=== PATIENT | female | born 1955 | race Caucasian/White ===

== ENCOUNTER → 2017-01-30 | Outpatient (CLI) | payer OTHER ==
[~2017-01-30] MED LIST: PANT40TA PO; VENL75CA PO; [UNRECOGNIZED DRUG - OTHER] PO
--- NOTE | 2017-01-30 15:37 | DIAGNOSTIC IMAGING REPORT ---
KUB CLINICAL HISTORY: Nephrolithiasis. FINDINGS: 2 AP supine abdominal radiographs are compared to study dated 02/13/2016 and correlated with abdominal CT dated 02/07/2016. There is a nonobstructed abdominal bowel gas pattern. Cholecystectomy clips are identified in the right upper quadrant. There is no radiographic evidence of nephrolithiasis. No calcifications project along the course of the ureters. Calcified phleboliths in the left pelvis are unchanged. The skeletal structures are osteopenic. There is moderate lumbosacral spondylosis. IMPRESSION: 1. There is no radiographic evidence of nephrolithiasis on today's examination. 2. Nonobstructed abdominal bowel gas pattern. Electronically signed by: Graeme Montiel M.D. 01/30/2017 3:36 PM Dictated Date/Time: 01/30/2017 3:35 PM
[2017-01-30 16:28] LABS: BLOOD UREA NITROGEN 17 mg/dl (7-18)
== END | disposition home or self-care (01) ==
LOC: C.RAD 14:51
PROVIDERS: ATTEND Urology
DX: N20.1 Calculus of ureter (principal)

== ENCOUNTER → 2017-02-15 | Outpatient (CLI) | payer OTHER ==
[~2017-02-15] MED LIST changes: +GADAVIST IV PRN
--- NOTE | 2017-02-15 11:12 | DIAGNOSTIC IMAGING REPORT ---
ABDOMINAL MRI WITH AND WITHOUT INTRAVENOUS CONTRAST HISTORY: Follow-up right renal lesion. TECHNIQUE: Multiplanar multisequence MRI of the abdomen was performed both before and after the intravenous administration of contrast. COMPARISON STUDY: Abdomen and pelvis CT 04/29/2015 and 02/17/2016. FINDINGS: There is again noted an exophytic 12 mm lesion within the interpolar region of the right kidney. This contains a few calcifications on the prior CT examination. This is heterogeneously T2 hyperintense, T1 hypointense. This demonstrates a thickened and nodular enhancement within the wall. Therefore, by definition this is consistent with a Bosniak category 3 lesion no additional enhancing lesions identified within the kidneys. There are few scattered bilateral T2 hyperintense nonenhancing lesions consistent with cysts. The dominant cyst is seen within the left kidney and measures 11 mm. Cholecystectomy. The liver, pancreas, and adrenal glands are unremarkable. The spleen is top normal in size. No retroperitoneal lymphadenopathy. IMPRESSION: 1. A 12 mm exophytic lesion within the right kidney which has not significantly changed in size compared to the 2015 examination. However, this is still considered a Bosniak category 3 lesion by criteria. Therefore, a renal neoplasm remains the diagnosis of exclusion. 2. Small bilateral renal cysts are again noted. 3. Cholecystectomy. Electronically signed by: Micky Rubio M.D. 02/15/2017 11:11 AM Dictated Date/Time: 02/15/2017 10:58 AM
== END | disposition home or self-care (01) ==
LOC: C.MRI 09:27
PROVIDERS: ATTEND Urology
DX: N28.89 Other specified disorders of kidney and ureter (principal); N28.1 Cyst of kidney, acquired; Z90.49 Acquired absence of other specified parts of digestive tract

== ENCOUNTER → 2017-12-27 | Outpatient (CLI) | payer OTHER ==
[~2017-12-27] MED LIST changes: -GADAVIST IV PRN; -VENL75CA PO; +VENL75CA88 PO
== END | disposition home or self-care (01) ==
LOC: C.LAB 11:32
PROVIDERS: ATTEND Family Medicine
DX: R07.89 Other chest pain (principal)

== ENCOUNTER → 2018-02-03 | Outpatient (CLI) | payer OTHER ==
--- NOTE | 2018-02-04 21:42 | ECHOCARDIOGRAM REPORT ---
*NOTICE TO RECEIVING DEMOCRAT AGENCY This information is strictly Confidential and protected under [place] law. [place] law prohibits you from making any further disclosure of this information unless further disclosure is expressly permitted by the written consent of the person to whom it pertains or is authorized by law. A general authorization for the release of medical or other information is not sufficient for this purpose. Hospital accepts no responsibility if the information is made available to any other person, INCLUDING THE PATIENT. Interpretation Summary * Name: JUN DOWLING Study Date: 02/03/2018 12:52 PM BP: 154/90 mmHg * Patient Location: [facility] HR: 72 * : 1955 (M/d/yyyy) Gender: Female Height: 67 in * Age: 62 yrs Ethnicity: [place] Weight: 265 lb * Ordering Physician: Emelia Mcintosh * Referring Physician: Emelia Mcintosh * Performed By: Mora Bonds RDCS * * Reason For Study: CHEST PAIN * BSA: 2.3 m2 * -- Conclusions -- * 1. Normal left ventricular size and systolic function. EF 65-70%. No regional wall motion abnormalities. Mild left ventricular hypertrophy. Type 1 diastolic dysfunction. * 2. No significant valvular abnormalities visualized. * 3. No prior study available for comparison. Procedure Details * A complete two-dimensional transthoracic echocardiogram was performed (2D, M-mode, Doppler and color flow Doppler). Left Ventricle * Normal left ventricular size and systolic function. EF 65-70%. No regional wall motion abnormalities. Mild left ventricular hypertrophy. Type 1 diastolic dysfunction. Right Ventricle * The right ventricle is grossly normal size. * The right ventricular systolic function is normal as assessed by tricuspid annular plane systolic excursion (TAPSE) (normal >1.5 cm). Atria * The left atrial size is normal. * Right atrial size is normal. * There is no evidence of atrial septal defect, but resolution does not allow assessment for a patent foramen ovale. Mitral Valve * The mitral valve is grossly normal. * There is no mitral valve stenosis. * Significant mitral regurgitation is absent. Tricuspid Valve * The tricuspid valve is not well visualized, but is grossly normal. * There is no tricuspid stenosis. * There is trace tricuspid regurgitation. Aortic Valve * The aortic valve is trileaflet. * No hemodynamically significant valvular aortic stenosis. * There is no significant aortic regurgitation. Pulmonic Valve * The pulmonic valve is not well seen, but is grossly normal. * There is no pulmonic valvular stenosis. * Trace pulmonic valvular regurgitation. Great Vessels * The aortic root is normal size. * Ascending aorta of normal dimension Pericardium/Pleural * There is no pericardial effusion. Great Vessels * Normal inferior vena cava size and collapsability with sniff indicates a normal right atrial pressure of 3 mmHg MMode 2D Measurements and Calculations IVSd 1.3 cm IVSs 2.3 cm LVIDd 5.2 cm LVIDs 3.1 cm LVPWd 0.89 cm LVPWs 1.6 cm IVS/LVPW 1.5 FS 40.5 % EDV(Teich) 127.6 ml ESV(Teich) 37.1 ml EF(Teich) 70.9 % EDV(cubed) 137.9 ml ESV(cubed) 29.0 ml EF(cubed) 79.0 % % IVS thick 75.7 % % LVPW thick 83.0 % LV mass(C)d 221.6 grams LV mass(C)dI 97.3 grams/m\S\2 LV mass(C)s 267.3 grams LV mass(C)sI 117.3 grams/m\S\2 SV(Teich) 90.5 ml SI(Teich) 39.7 ml/m\S\2 SV(cubed) 108.9 ml SI(cubed) 47.8 ml/m\S\2 Ao root diam 3.5 cm Ao root area 9.5 cm\S\2 ACS 1.7 cm LA dimension 4.4 cm asc Aorta Diam 3.4 cm LA/Ao 1.3 LVOT diam 2.2 cm LVOT area 3.8 cm\S\2 LVAd ap4 29.2 cm\S\2 LVLd ap4 9.0 cm EDV(MOD-sp4) 83.3 ml EDV(sp4-el) 80.8 ml LVAs ap4 15.6 cm\S\2 LVLs ap4 7.3 cm ESV(MOD-sp4) 31.6 ml ESV(sp4-el) 28.4 ml EF(MOD-sp4) 62.1 % EF(sp4-el) 64.9 % LVAd ap2 31.6 cm\S\2 LVLd ap2 8.6 cm EDV(MOD-sp2) 99.8 ml EDV(sp2-el) 98.7 ml LVAs ap2 14.0 cm\S\2 LVLs ap2 6.8 cm ESV(MOD-sp2) 26.7 ml ESV(sp2-el) 24.6 ml EF(MOD-sp2) 73.3 % EF(sp2-el) 75.0 % LVLd %diff -4.58 % EDV(MOD-bp) 90.1 ml LVLs %diff -5.22 % ESV(MOD-bp) 26.2 ml EF(MOD-bp) 70.9 % SV(MOD-sp4) 51.7 ml SI(MOD-sp4) 22.7 ml/m\S\2 SV(MOD-sp2) 73.1 ml SI(MOD-sp2) 32.1 ml/m\S\2 SV(MOD-bp) 63.9 ml SI(MOD-bp) 28.0 ml/m\S\2 SV(sp4-el) 52.5 ml SI(sp4-el) 23.0 ml/m\S\2 SV(sp2-el) 74.1 ml SI(sp2-el) 32.5 ml/m\S\2 Doppler Measurements and Calculations MV E max annia 66.9 cm/sec MV A max annia 71.2 cm/sec MV E/A 0.94 MV dec time 0.20 sec Ao V2 max 145.8 cm/sec Ao max PG 8.5 mmHg Ao max PG (full) 5.9 mmHg JOSE(V,A) 2.1 cm\S\2 JOSE(V,D) 2.1 cm\S\2 LV V1 max PG 2.6 mmHg LV V1 max 80.2 cm/sec PA V2 max 60.9 cm/sec PA max PG 1.5 mmHg
== END | disposition home or self-care (01) ==
LOC: C.CPL 12:42
PROVIDERS: ATTEND Family Medicine
DX: R07.89 Other chest pain (principal)

== ENCOUNTER → 2018-02-10 | Outpatient (CLI) | payer OTHER ==
--- NOTE | 2018-02-10 10:41 | DIAGNOSTIC IMAGING REPORT ---
ABD/PELVIS COMBO CT DOSE: 3006.82 mGycm HISTORY: Nephrocalcinosis N20.0 [id number] TECHNIQUE: Multiaxial CT images of the abdomen and pelvis were performed pre and post intravenous contrast enhancement. A dose lowering technique was utilized adhering to the principles of ALARA. COMPARISON STUDY: 09/17/2015 FINDINGS: Chronic basilar or reactive change and interstitial parenchymal fibrosis. The liver spleen and pancreas appear unremarkable. Bilateral nephrocalcinosis considered unchanged from the prior study. Small cysts and are slightly hyperdense cysts unchanged. There are no new or interval findings. Postcontrast images show uniform enhancement characteristics of the kidneys. The adrenal glands are normal. Bowel pattern within the abdomen and pelvis is nonobstructive. Bladder opacifies well. The appendix is normal. IMPRESSION: 1. Bilateral nonobstructing nephrocalcinosis. 2. Several renal cysts and or complex cysts unchanged from the prior exam. 3. No abnormal postcontrast enhancement characteristics. 4. Remainder of the study is unremarkable. The above report was generated using voice recognition software. It may contain grammatical, syntax or spelling errors. Electronically signed by: Magno Cruz M.D. 02/10/2018 10:40 AM Dictated Date/Time: 02/10/2018 10:35 AM
== END | disposition home or self-care (01) ==
LOC: C.CTS 09:50
PROVIDERS: ATTEND Urology
DX: N20.0 Calculus of kidney (principal); N28.1 Cyst of kidney, acquired

== ENCOUNTER → 2018-02-14 | Outpatient (CLI) | payer OTHER ==
[2018-02-14 16:00] LABS: BLOOD UREA NITROGEN 27 mg/dl (7-18); CREATININE 1.33 mg/dl (0.60-1.20)
== END | disposition home or self-care (01) ==
LOC: C.LAB 13:51
PROVIDERS: ATTEND Urology
DX: N20.0 Calculus of kidney (principal)